=== PATIENT | male | born 1960 | race Caucasian/White ===

== ENCOUNTER → 2021-08-08 10:57 | Outpatient (CLI) | payer OTHER, SELFPAY ==
[2021-08-08 12:32] LABS: Hematocrit 45.4 % (41-53); Hemoglobin 15.6 g/dL (13.5-17.5); Mean Corpuscular HGB Conc 34.3 % (30-36); Mean Corpuscular Hemoglobin 29.4 PG (26-34); Mean Corpuscular Volume 85.7 fL (80-100); Platelet Count 266 X10^3/uL (150-400); Red Cell Distribution Width 13.8 % (11.6-14.8); White Blood Cell Count 5.1 X10^3/uL (4.5-11.0)
[2021-08-08 12:39] LABS: Alanine Aminotransferase 17 IU/L (<50); Albumin 5.2 g/dL (3.5-5.0); Albumin Globulin Ratio 1.6 (1.0-2.8); Alkaline Phosphatase 80 U/L (38-126); Aspartate Aminotransferase 31 IU/L (17-59); BUN Creatinine Ratio 13.1 (6-22); Bilirubin Total 0.6 mg/dL (0.2-1.3); Blood Urea Nitrogen 11 mg/dL (9-20); Calcium 9.3 mg/dL (8.4-10.2); Carbon Dioxide 22 mmol/L (22-32); Chloride 104 mmol/L (98-107); Cholesterol 180 mg/dL (140-199); Estimated Glomerular Filt Rate > 60 mL/min (>60); Globulin 3.3 g/dL (1.7-4.1); Glucose 66 mg/dL (70-100); HDL Cholesterol 37 mg/dL (40-60); HEMOLYSIS < 15 (0-50); LDL Cholesterol Calculated 128 mg/dL (<100); Potassium 4.1 mmol/L (3.4-5.1); Sodium 141 mmol/L (137-145); Total Protein 8.5 g/dL (6.3-8.2); Triglycerides 74 mg/dL (35-150)
[2021-08-08 13:12] LABS: Prostate Specific Antigen 1.13 ng/mL (0.10-4.00)
== END ==
PROVIDERS: PCP Internal Medicine; Referring Provider Internal Medicine; Visit Provider Internal Medicine
DX: Z00.00 Encounter for general adult medical examination without abnormal findings (principal)
CPT/HCPCS: 36415; 80053; 80061; 84153; 84443; 85027

== ENCOUNTER → 2022-09-07 17:11 | Outpatient (CLI) | payer OTHER, SELFPAY ==
[2022-09-07 18:09] LABS: Alanine Aminotransferase 19 IU/L (<50); Albumin 4.7 g/dL (3.5-5.0); Albumin Globulin Ratio 1.6 (1.0-2.8); Alkaline Phosphatase 74 U/L (38-126); Aspartate Aminotransferase 21 IU/L (17-59); BUN Creatinine Ratio 16.9 (6-22); Bilirubin Total 0.7 mg/dL (0.2-1.3); Blood Urea Nitrogen 13 mg/dL (9-20); Carbon Dioxide 30 mmol/L (22-32); Chloride 101 mmol/L (98-107); Cholesterol 176 mg/dL (140-199); Estimated Glomerular Filt Rate > 60 mL/min (>60); Glucose 74 mg/dL (80-110); HDL Cholesterol 41 mg/dL (40-60); HEMOLYSIS < 15 (0-50); LDL Cholesterol Calculated 122 mg/dL (<100); Potassium 3.7 mmol/L (3.4-5.1); Sodium 140 mmol/L (137-145); Total Protein 7.7 g/dL (6.3-8.2); Triglycerides 65 mg/dL (35-150)
[2022-09-07 18:39] LABS: Prostate Specific Antigen Scrn 1.23 ng/mL (0.1-4.0)
== END ==
PROVIDERS: PCP Internal Medicine; Referring Provider Internal Medicine; Visit Provider Internal Medicine
DX: E78.2 Mixed hyperlipidemia (principal); I10 Essential (primary) hypertension; Z12.5 Encounter for screening for malignant neoplasm of prostate
CPT/HCPCS: 36415; 80053; 80061; G0103

== ENCOUNTER → 2024-01-30 10:54 | Outpatient (CLI) | payer BC, SELFPAY ==
[2024-01-30 12:51] LABS: Aspartate Aminotransferase 41 IU/L (17-59); BUN Creatinine Ratio 9.8 (6-22); Blood Urea Nitrogen 8 mg/dL (9-20); Calcium 9.4 mg/dL (8.4-10.2); Carbon Dioxide 20 mmol/L (22-32); Chloride 103 mmol/L (98-107); Cholesterol 148 mg/dL (140-199); Estimated Glomerular Filt Rate > 60 mL/min (>60); Glucose 54 mg/dL (80-110); HDL Cholesterol 57 mg/dL (40-60); LDL Cholesterol Calculated 79 mg/dL (<100); Potassium 4.2 mmol/L (3.4-5.1); Sodium 142 mmol/L (137-145); Triglycerides 61 mg/dL (35-150)
[2024-01-30 12:57] LABS: HEMOLYSIS 62 (0-50)
[2024-01-30 13:21] LABS: Prostate Specific Antigen Scrn 2.26 ng/mL (0.1-4.0)
[2024-01-30 17:13] LABS: Vitamin D 25 Hydroxy (D3) 71.8 ng/mL (30.0-100.0)
== END ==
PROVIDERS: PCP Internal Medicine; Referring Provider Internal Medicine; Visit Provider Internal Medicine
DX: I10 Essential (primary) hypertension (principal); E78.2 Mixed hyperlipidemia; Z12.5 Encounter for screening for malignant neoplasm of prostate; E55.9 Vitamin D deficiency, unspecified; H34.8192 Central retinal vein occlusion, unspecified eye, stable
CPT/HCPCS: 36415; 80048; 80061; 82306; 84450; G0103

== ENCOUNTER → 2024-05-02 07:53 | Outpatient (CLI) | payer BC, SELFPAY ==
[2024-05-03 08:36] LABS: PSA Free % 36.2 % (.); PSA, Total 1.3 ng/mL (0.0-4.0)
== END ==
PROVIDERS: PCP Internal Medicine; Referring Provider Internal Medicine; Visit Provider Internal Medicine
DX: R97.20 Elevated prostate specific antigen [PSA] (principal)
CPT/HCPCS: 36415; 84153; 84154